=== PATIENT | female | born 1935 | race Caucasian/White ===

== ENCOUNTER 2025-04-01 11:50 | Emergency (ER) | payer MEDICARE, BC ==
[2025-04-01 13:26] LABS: BASOPHILS ABSOLUTE AUTO 0.1 K/mm3 (0.0-0.2); BASOPHILS PERCENT AUTO 0.9 % (0.0-1.0); EOSINOPHILS ABSOLUTE AUTO 0.4 K/mm3 (0.0-0.4); EOSINOPHILS PERCENT AUTO 2.7 % (0.0-6.0); IMMATURE GRAN ABSOLUTE AUTO 0.07 K/mm3 (0.00-0.05); IMMATURE GRAN PERCENT AUTO 0.5 % (0.0-0.4); LYMPHOCYTES ABSOLUTE AUTO 1.1 K/mm3 (1.0-4.8); LYMPHOCYTES PERCENT AUTO 8.4 % (24.0-44.0); MEAN PLATELET VOLUME 11.7 fl (9.4-12.3); MONOCYTES ABSOLUTE AUTO 0.7 K/mm3 (0.0-0.8); MONOCYTES PERCENT AUTO 4.9 % (0.0-8.0); NEUTROPHILS ABSOLUTE AUTO 11.0 K/mm3 (1.8-7.7); NEUTROPHILS PERCENT AUTO 82.6 % (41.0-71.0); NRBC ABSOLUTE 0.00 (0.00-0.02); NRBC PERCENT 0.0 % (0.0-0.2); PLATELET COUNT,PLT 173 K/mm3 (150-400); RED BLOOD CELL COUNT 4.25 M/mm3 (4.10-5.30); WHITE BLOOD CELL COUNT,WBC 13.26 K/mm3 (3.9-11.3)
[2025-04-01] MEDS: Sodium Chloride 0.9% 10 ML Syringe FLUSH PRN (13:31)
[2025-04-01 13:51] LABS: A/G RATIO 0.9 (1-2); ALANINE AMINOTRANSFERASE,ALT 14.0 U/L (14-59); ASPARTATE AMNIOTRANSFERASE,AST 19.0 U/L (15-37); BILIRUBIN TOTAL 0.5 mg/dL (0.2-1.0); BLOOD UREA NITROGEN,BUN 14.0 mg/dL (7-18); CARBON DIOXIDE,CO2 29.0 mEq/L (21-32); CHLORIDE,CL 107.0 mEq/L (98-107); CREATININE 0.7 mg/dL (0.55-1.02); EST CRCL DRUG DOSING (CG) 52.98 mL/min; ESTIMATED GFR 83.0 mL/min (>60); GLUCOSE RANDOM 93.0 mg/dL (70-99); POTASSIUM,K 4.4 mEq/L (3.5-5.1); PROTEIN TOTAL,TP 6.8 g/dl (6.4-8.2); SODIUM,NA 142.0 mEq/L (136-145); TROPONIN I HIGH SENSITIVITY 11.0 pg/mL (<=51)
[2025-04-01] MEDS: Iopamidol 612 MG/ML 100 ML Bottle IVPUSH ONE (14:43)
[2025-04-01] MEDS: Ondansetron 4 MG/2 ML SDV IVPUSH ONE (15:41)
[2025-04-01 16:00] LABS: APPEARANCE,URINE CLEAR (Clear); GLUCOSE,URINE NEGATIVE (Negative); OCCULT BLOOD,URINE TRACE-INTACT (Negative)
[2025-04-01 16:07] LABS: SQUAMOUS EPITHELIAL CELLS,UR 0-5 /hpf (0-5)
== END 2025-04-01 17:05 | disposition home or self-care (01) ==
LOC: JD.ED 11:50
DX: R55 Syncope and collapse (principal); N30.01 Acute cystitis with hematuria; Z79.899 Other long term (current) drug therapy
CPT/HCPCS: 36415; 70450; 71260; 74177; 80053; 81001; 83690; 84484; 85025; 86140; 87086; 87088; 87186; 93005; 96361; 96374; 96375; 99285; J1308; J2405; J7030; Q9967